=== PATIENT | female | born 1990 ===

== ENCOUNTER 2020-09-20 12:30 | Inpatient (IN) | payer OTHER ==
[~2020-09-20] VITALS: Ht 160 cm; Wt 84.4 kg
[2020-09-23] MEDS ORDERED: PRENATAL TABLE1 EAC1 PO (23:20)
[2020-09-23] MEDS ORDERED: MIRALAX17 GM PO (23:20)
[2020-09-23] MEDS ORDERED: [UNRECOGNIZED DRUG - OTHER] PO (23:21)
== END 2020-09-26 19:24 | disposition home or self-care (01) | DRG 806 ==
LOC: LDR 09-23 22:31 → OB/GYN 09-24 18:45 → SURH 09-27 12:30
PROVIDERS: ADMIT Obstetrics & Gynecology; ATTEND Obstetrics & Gynecology
PROC: 0UQG7ZZ Repair Vagina, Via Natural or Artificial Opening (ICD-10-PCS; 2020-09-24)
PROC: 4A1HXFZ Monitoring of Products of Conception, Cardiac Rhythm, External Approach (ICD-10-PCS; 2020-09-24)
PROC: 10E0XZZ Delivery of Products of Conception, External Approach (ICD-10-PCS; principal; 2020-09-24 15:30)
DX: O42.02 Full-term premature rupture of membranes, onset of labor within 24 hours of rupture (principal); O71.4 Obstetric high vaginal laceration alone; Z37.0 Single live birth; Z3A.39 39 weeks gestation of pregnancy; Z20.822 Contact with and (suspected) exposure to COVID-19

== ENCOUNTER 2022-08-20 10:34 | Outpatient (CLI) | payer OTHER ==
[~2022-08-20 10:34] MED LIST: MIRALAX17 GM PO; PRENATAL TABLE1 EAC1 PO; [UNRECOGNIZED DRUG - OTHER] PO
== END 2022-08-20 11:23 | disposition home or self-care (01) ==
LOC: NST 10:34
PROVIDERS: ATTEND Obstetrics & Gynecology Gynecology
DX: Z34.83 Encounter for supervision of other normal pregnancy, third trimester (principal)

== ENCOUNTER 2022-08-20 13:03 | Inpatient (IN) | payer OTHER ==
[~2022-08-20] VITALS: Ht 157.5 cm; Wt 84.8 kg
[2022-08-25] MEDS ORDERED: PRENATAL TABLE1 EAC1 PO (00:49)
== END 2022-08-27 12:55 | disposition home or self-care (01) | DRG 807 ==
LOC: OB/GYN 08-24 23:34 → LDR 08-24 23:34 → OB/GYN 08-25 01:20
PROVIDERS: ADMIT Obstetrics & Gynecology; ATTEND Obstetrics & Gynecology
PROC: 4A1HXCZ Monitoring of Products of Conception, Cardiac Rate, External Approach (ICD-10-PCS; 2022-08-24)
PROC: 10E0XZZ Delivery of Products of Conception, External Approach (ICD-10-PCS; principal; 2022-08-25)
PROC: 0KQM0ZZ Repair Perineum Muscle, Open Approach (ICD-10-PCS; 2022-08-25)
DX: O70.1 Second degree perineal laceration during delivery (principal); Z37.0 Single live birth; Z3A.38 38 weeks gestation of pregnancy; Z20.822 Contact with and (suspected) exposure to COVID-19